=== PATIENT | male | born 1980 | race Caucasian/White ===

== ENCOUNTER 2024-03-19 07:55 | Day surgery (SDC) | payer BC ==
[~2024-03-19] VITALS: Ht 177.8 cm; Wt 100.0 kg
[~2024-03-19 07:55] MED LIST: IBLOOD GLUCOSE TEST STRIP 1 EA TEST VI PRN; LACTATED RINGER'S 1,000 ML IV SCH; LIDOCAINE HCL 1% 5 ML SDV INJ ONE; MIDAZOLAM HCL 5 MG/5 ML VIAL IV PRN; fentaNYL citrate 100 MCG/2 ML VIAL IV PRN
[2024-03-19 08:16] VITALS: BP 131/93
[2024-03-19] MEDS ORDERED: ONE DAILY COMP1 EACH PO (08:16)
[2024-03-19] MEDS ORDERED: FISH OIL 1,201200 MG PO (08:16)
[2024-03-19] MEDS ORDERED: MIDAZOLAM HCL 2 MG/2 ML VIAL ONE (09:14)
[2024-03-19] MEDS ORDERED: fentaNYL citrate 100 MCG/2 ML VIAL ONE (09:14)
--- NOTE | 2024-03-19 10:12 | NUR ---
03/19/24 1012 Jasmin Jimenez 1004-PT ARRVIES TO PACU RESTING ON LT SIDE. VSS ON 3L VIA NC, REU. PT AWAKENS TO VERBAL STIMULI BUT FALLS BACK TO SLEEP EASILY. PT DENIES ANY PAIN OR NAUSEA.
[2024-03-19 10:30] VITALS: BP 127/81
--- NOTE | 2024-03-20 14:25 | OR ---
[facility] [address], [place] [address] Signed DATE OF OPERATION: 03/19/2024 SURGEON: Yan Solis MD PREOPERATIVE DIAGNOSIS: Colon screening. POSTOPERATIVE DIAGNOSIS: Two small polyps rectosigmoid (excised). PROCEDURE: Total colonoscopy to cecum with cold morcellation polypectomy x2. ANESTHESIA: Intravenous sedation; fentanyl 100 mcg and Versed 5 mg. INDICATION: This 44-year-old white man is a patient of Dr. Jessie Sandoval, referred for screening colonoscopy based on his age. He has no family history of colon cancer and no symptoms of bleeding, diarrhea, or constipation. He is admitted to undergo screening colonoscopy. He understands the risk of bleeding, infection, and perforation. FINDINGS: The prep was excellent. Complete colonoscopy was undertaken of the cecum with full intubation of the cecum. There were two very small polyps of the rectosigmoid, both were excised. The colon was otherwise normal. PROCEDURE IN DETAIL: The patient was brought to the endoscopy suite and placed in the lateral decubitus position, given intravenous sedation to the point of slurred speech and nystagmus. Digital rectal examination was normal. An Olympus video colonoscope was passed in the rectum and manipulated throughout the colon ultimately intubating the cecum itself. The ileocecal valve and the appendiceal orifice were normal. The scope was withdrawn from that point and examination throughout showed no sign of abnormality into the rectosigmoid, where two very small polyps were noted. Both were excised with cold morcellation technique. Retroflexed view was otherwise normal. The scope was removed and the patient was taken to the recovery room in good condition. Electronically Signed By: YAN SOLIS MD 03/20/24 1425 PATIENT NAME: SCOTT ROMO OPERATIVE REPORT DATE OF : 76 REPORT #: [id number] PHYSICIAN: YAN SOLIS MD PCP: JESSIE SANDOVAL MD REPORT IS CONFIDENTIAL AND NOT TO BE RELEASED WITHOUT AUTHORIZATION [facility] [address], [place] [address] Signed CONCLUDING DIAGNOSIS: Small polyp x2. PLAN: Recommend repeat colonoscopy in seven years per current recommendations, sooner if symptoms should develop. He will return to the ongoing care of Dr. Jessie Sandoval. MD GUDELIA Leon/MODL /[id number] cc: Jessie Sandoval MD Copies: JESSIE SANDOVAL DMD ~ Electronically Signed By: YAN SOLIS MD 03/20/24 1425 PATIENT NAME: SCOTT ROMO OPERATIVE REPORT DATE OF : 76 REPORT #: [id number] PHYSICIAN: YAN SOLIS MD PCP: JESSIE SANDOVAL MD REPORT IS CONFIDENTIAL AND NOT TO BE RELEASED WITHOUT AUTHORIZATION
--- NOTE | 2024-03-23 12:45 | PATH ---
[facility] [address] [place] [address] Signed SPECIMEN(S): A SIGMOID POLYP SPECIMEN SOURCE: A. SIGMOID POLYP CLINICAL HISTORY: Screening FINAL PATHOLOGIC DIAGNOSIS: Colon, sigmoid, polypectomy: - Hyperplastic polyp BRP MICROSCOPIC EXAMINATION: Histologic sections of all submitted blocks are examined by light microscopy. These findings, together with the gross examination, support the pathologic diagnosis. GROSS DESCRIPTION: The specimen, labeled and designated "Emil sigmoid polyp," is received in formalin and consists of two estrada soft tissue fragments, ranging from 0.2-0.3 cm. Entirely submitted in (A1). VB (under the direct supervision of a pathologist) The Gross Description was prepared using a voice recognition system. The report was reviewed for accuracy; however, sound-alike word errors, addition and/or deletions may occur. If there is any question about this report, please contact Client Services. ADDITIONAL NOTES: Immunohistochemical and/or in situ hybridization studies if performed in this case included appropriate positive controls that reacted as expected. This test was developed and its performance characteristics determined by [facility]. It has not been cleared or approved by the U.S. Food and Drug Administration. The FDA has determined that such clearance or approval is not necessary. This test is used for clinical purposes. It should not be regarded as investigational or for research. [facility] is certified under the Clinical Laboratory Improvement Amendments of 1988 (CLIA) as qualified to perform high complexity clinical laboratory testing. PATIENT NAME: SCOTT ROMO PATHOLOGY DATE OF : 76 REPORT #: [id number] PHYSICIAN: LIZZY JAUREGUI PCP: JESSIE SANDOVAL MD REPORT IS CONFIDENTIAL AND NOT TO BE RELEASED WITHOUT AUTHORIZATION [facility] [address] [place], [place] [address] Signed PERFORMING LABORATORY: Technical component was performed by [facility], [address] [place] [address] (CLIA# [id number]). Professional interpretation was performed by [facility] - [facility] [address] [address] (CLIA# [id number]). Diagnostician: Tad Honeycutt MD Pathologist Electronically Signed 03/23/2024 Copies: ~ PATIENT NAME: SCOTT ROMO PATHOLOGY DATE OF : [birth year] REPORT #: [id number] PHYSICIAN: LIZZY JAUREGUI PCP: JESSIE SANDOVAL MD REPORT IS CONFIDENTIAL AND NOT TO BE RELEASED WITHOUT AUTHORIZATION
== END 2024-03-19 10:38 | disposition home or self-care (01) ==
LOC: DS 07:55
PROVIDERS: ATTEND Surgery
PROC: 0DBN8ZZ Excision of Sigmoid Colon, Via Natural or Artificial Opening Endoscopic (ICD-10-PCS; principal; 2024-03-19 09:45)
DX: Z12.11 Encounter for screening for malignant neoplasm of colon (principal); K63.5 Polyp of colon; G47.30 Sleep apnea, unspecified; I10 Essential (primary) hypertension; Z99.89 Dependence on other enabling machines and devices
CPT/HCPCS: 99153; G0500; J2250; J3010; J7121